=== PATIENT | male | born 1935 | race Caucasian/White ===

== ENCOUNTER → 2016-11-19 | Outpatient (CLI) | payer OTHER ==
[2016-11-19 14:54] LABS: ALT/SGPT 33 U/L (12-78); AST/SGOT 17 U/L (15-37); BLOOD UREA NITROGEN 19 mg/dl (7-18); BUN/CREATININE RATIO 11.7 (10-20); CALCIUM 8.6 mg/dl (8.5-10.1); CARBON DIOXIDE 29 mmol/L (21-32); CHLORIDE 105 mmol/L (98-107); CHOLESTEROL 165 mg/dl (0-200); GLUCOSE 102 mg/dl (70-99); HDL CHOLESTEROL 41 mg/dl; LDL CHOLESTEROL CALCULATED 90 mg/dl; POTASSIUM 3.9 mmol/L (3.5-5.1); SODIUM 142 mmol/L (136-145); TRIGLYCERIDES 172 mg/dl (0-150); VERY LOW DENSITY LIPOPROT CALC 34 mg/dl
== END | disposition home or self-care (01) ==
LOC: C.LABMFLN 09:47
PROVIDERS: ATTEND Family Medicine
DX: I10 Essential (primary) hypertension (principal); E78.5 Hyperlipidemia, unspecified; N28.9 Disorder of kidney and ureter, unspecified

== ENCOUNTER → 2017-05-26 | Outpatient (CLI) | payer OTHER ==
[2017-05-26 14:01] LABS: ALT/SGPT 30 U/L (12-78); AST/SGOT 17 U/L (15-37); BLOOD UREA NITROGEN 26 mg/dl (7-18); BUN/CREATININE RATIO 16.5 (10-20); CALCIUM 8.7 mg/dl (8.5-10.1); CARBON DIOXIDE 29 mmol/L (21-32); CHLORIDE 103 mmol/L (98-107); CHOLESTEROL 158 mg/dl (0-200); CREATININE 1.55 mg/dl (0.60-1.40); GLUCOSE 113 mg/dl (70-99); POTASSIUM 3.7 mmol/L (3.5-5.1); SODIUM 140 mmol/L (136-145)
[2017-05-26 14:05] LABS: CHOLESTEROL/HDL RATIO 3.8; HDL CHOLESTEROL 42 mg/dl; LDL CHOLESTEROL CALCULATED 75 mg/dl; TRIGLYCERIDES 203 mg/dl (0-150); VERY LOW DENSITY LIPOPROT CALC 41 mg/dl
== END | disposition home or self-care (01) ==
LOC: C.LABMFLN 07:51
PROVIDERS: ATTEND Family Medicine
DX: I10 Essential (primary) hypertension (principal); E78.5 Hyperlipidemia, unspecified

== ENCOUNTER 2022-06-30 04:58 | Observation (INO) ==
[2022-06-30] MEDS ORDERED: SODIUM CHLORIDE 0.9% 500 ML IV ONE (05:45)
[2022-06-30 06:43] LABS: Basophils # (auto) 0.04 K/uL (0-0.2); Basophils % (auto) 0.5 %; Eosinophils # (auto) 0.17 K/uL (0-0.50); Eosinophils % (auto) 2.1 %; Hematocrit (blood only) 41.2 % (40.1-51.0); Immature Granulocytes # (auto) 0.08 K/uL (0.00-0.02); Lymphocytes # (auto) 0.83 K/uL (1.2-3.4); Lymphocytes % (auto) 10.2 %; Mean Corpuscular Volume 88.4 fL (80.0-100.0); Mean Platelet Volume 9.9 fL (9.4-12.4); Monocytes # (auto) 0.93 K/uL (0.24-0.82); Monocytes % (auto) 11.4 %; Neutrophils % (auto) 74.8 %; Platelet Count 222 K/uL (130-400); RDW Coefficient of Variation 14.7 % (11.5-14.5); RDW Standard Deviation 47.5 fL (36.4-46.3); Red Blood Count 4.66 M/uL (4.63-6.08); White Blood Count 8.15 K/ul (4.8-10.8)
[2022-06-30 06:44] LABS: Alanine Aminotransferase 19 U/L (7-52); Albumin Globulin Ratio 1.6 (0.9-2); Albumin Level 3.8 gm/dl (3.4-5.0); Alkaline Phosphatase 57 U/L (34-104); Anion Gap 7 (3-11); Aspartate Aminotransferase 18 U/L (13-39); BUN Creatinine Ratio 20.1 (10-20); Bilirubin,Total 0.5 mg/dl (0.2-1.0); Blood Urea Nitrogen 33 mg/dl (6-23); Calcium 8.1 mg/dl (8.5-10.1); Carbon Dioxide 27 mmol/L (21-32); Chloride 102 mmol/L (98-107); Est GFR (African American) 42.3 ml/min; Est GFR (Non-African American) 36.5 ml/min; Globulin 2.4 gm/dl (2.5-4.0); Glucose 129 mg/dl (70-99(Fasting)); Potassium 3.6 mmol/L (3.5-5.1); Sodium 136 mmol/L (136-145); Total Protein 6.2 gm/dl (6.0-8.3)
--- NOTE | 2022-06-30 07:09 | Emergency Department Note ---
Impression & Plan Fall, Weakness Admit to the [facility] ED Provider Note NAME: RINKU HTURSTON AGE: 87 SEX: M ARRIVES VIA: Ambulance INFORMANT: Patient and his daughter ED PROVIDER(S): Aminata Morse DO CHIEF COMPLAINT: Fall and confusion PLAN: Disposition: Admit to the [facility] Condition: Stable MEDICAL DECISION MAKING: This is an 87-year-old male patient who presents emergency department after suffering a fall tonight and having increased confusion. Patient had a pacemaker placed 2 days ago and has had increased falls and weakness since that time. Patient appears slightly dehydrated on physical exam. Laboratory studies show a creatinine of 1.6 with recent creatinines of 1.4. Patient was bolused with IV normal saline solution and was encouraged to drink clear liquids so that he could give a urine specimen. Other laboratory studies were unremarkable. Family describes intermittent episodes of confusion. Patient did not injure himself during any of the recent falls. Though daughter does describe increased urinary frequency. Urinalysis is pending. I discussed the case with the [facility] Hospitalist and they will evaluate for further management. Triage Nursing notes reviewed and agree with them. Additional history obtained from the daughters who are at the bedside Prior medical records reviewed Vital Signs: reviewed and unremarkable Differential diagnosis: Medication side effects, dehydration, cardiac dysrhythmia, pacemaker malfunction, UTI ER treatment provided: IV normal saline bolus Diagnostics interpreted by me: ECG: Normal sinus rhythm at a rate of 64 with first-degree AV block. There is right bundle branch block. There are T wave inversions in the lateral leads. Cardiac Monitoring: Normal sinus rhythm at a rate of 60 Laboratory studies: See below Imaging studies: As per my interpretation Portable chest x-ray: No acute pulmonary infiltrates or consolidations appreciated CT scan of the head: As per radiology report HPI: 87/M arrives for evaluation of fall. Patient had pacemaker placed [address] Lewis. Patient suffered a fall in the hallway tonight but did not injure himself. Patient seem to be somewhat confused after the fall but did not strike his head. Family found his blood pressure to be 82/39. They do admit that the patient has had a couple falls over the past 3 days and has become increasingly weak. They do describe urinary frequency. PAST MEDICAL HISTORY:See Below PAST SURGICAL HISTORY:See Below FAMILY HISTORY:See Below SOCIAL HISTORY:See Below HOME MEDICATIONS:See list ALLERGIES:None VITALS:See Below PHYSICAL EXAMINATION: HEENT: Head - normocephalic and atraumatic Pupils are equal, round, and reactive to light. Extraocular eye muscles are intact, and sclera are anicteric. Nose - moist nasal mucosa without discharge. Mouth - moist buccal mucosa. Oropharynx is nonerythematous and there is no tonsillar exudate or edema noted. Neck: Supple; no cervical lymphadenopathy Heart: Regular rate and rhythm. There is a normal S1 and S2 with no murmurs, clicks, or gallops appreciated. Lungs: Clear to auscultation bilaterally with no wheezes, rales, or rhonchi. Abdomen: Soft, completely nontender, nondistended, with good bowel sounds. There are no palpable pulsatile masses or hepatosplenomegaly. There is no guarding, rigidity, or rebound noted. Extremities: No evidence of cyanosis, clubbing, or edema. There are easily palp able peripheral pulses. Skin: warm and dry with good turgor and no rashes. ED COURSE: Times/Reassessments: 520: The patient was evaluated in room B 12. Previous medical records were reviewed from previous hospitalizations. A complete history and physical was performed. An order was placed for continuous cardiac monitoring. The patient was in a normal sinus rhythm at a rate of 60. A twelve-lead EKG was obtained as described above. Patient was bolused with IV normal saline solution. Patient had a chest x-ray and went for CT scan of the brain. I discussed the case with the [facility] Hospitalist. Aminata Morse DO Past Med/Surg History Medical History (Updated 07/01/22 @ 14:18 by Aminata Morse DO) Abnormal weight loss Adjustment reaction Amputation of left great toe Carotid stenosis Gout Head trauma Hyperlipidemia Hypertension Hypokalemia Hypotension Mixed conductive and sensorineural hearing loss of right ear with restricted hearing of left ear Neuropathy Onychomycosis Osteomyelitis of great toe of left foot PAD (peripheral artery disease) Peripheral vascular disease Prediabetes Renal insufficiency Right shoulder pain Syncope Surgical History History of cholecystectomy 2019 History of surgery Broken legs repair and head injury - 1948 History of surgery Heel spurs - 10+ years ago. S/P cholecystectomy Status post surgical removal of malignant neoplasm of skin Family History (Updated 06/30/22 @ 14:18 by Sindy Flor DO) Father Hypertension Heart disease Stroke Mother Hypertension Heart disease Other No family history of adverse response to anesthesia No family history of bleeding disorder Social History Smoking Status: Never smoker Second Hand Exposure: No; Hx Alcohol Use: No Hx Substance Use: No Preferred Language: Amharic Communication Ability: Effective Mirror Installer Required: No Beliefs That Will Affect Care: None Current Living Situation: Spouse current occupational status: retired Other Information That Helps Us Care for You: No Feels Safe at Home: Yes Safety Concerns: Feels Safe At This Time caffeine: Yes Seatbelt Use: always Assistive Devices: Cane, Denture - Upper, Denture - Lower, Glasses and Hearing Aid - Bilateral Allergies Allergies Allergy/AdvReac Type Severity Reaction Status Date / Time No Known Drug Allergies Allergy Unknown Verified 06/28/22 09:28 Home Meds Home Medications Medication Instructions Recorded Confirmed aspirin 81 mg tablet 81 mg PO DAILY 12/04/18 06/28/22 acetaminophen 500 mg tablet 1,000 mg PO TID PRN Pain 01/31/22 06/28/22 (Tylenol Extra Strength) Previous Rx's Medication Instructions Recorded triamcinolone acetonide 0.1 % 1 appln topical BID PRN itching 12/04/18 topical cream #80 grams tamsulosin 0.4 mg capsule 0.8 mg PO DAILY #180 caps 06/14/21 mupirocin 2 % topical ointment 1 applic topical BID #15 grams 12/14/21 rosuvastatin 20 mg tablet (Crestor) 20 mg PO DAILY #90 tabs 01/31/22 clopidogrel 75 mg tablet (Plavix) 75 mg PO DAILY #90 tabs 04/25/22 cyanocobalamin (vitamin B-12) 1,000 mcg PO DAILY #30 caps 04/25/22 1,000 mcg capsule sertraline 100 mg tablet 100 mg PO .QHS #90 tabs 05/13/22 hydrochlorothiazide 12.5 mg tablet 12.5 mg PO QAM #90 tabs 05/31/22 potassium chloride 10 mEq 10 meq PO BID #180 tabs 05/31/22 tablet,extended release finasteride 5 mg tablet 5 mg PO DAILY #90 tabs 06/18/22 Results & Data (ED) Vital Signs Vital Signs - 24 hr 06/30/22 05:02 06/30/22 05:02 06/30/22 06:04 Temperature 36.9 C Temperature Source Oral Pulse Rate 64 Pulse Rate from SpO2 Sensor Respiratory Rate 22 Respiratory Effort / Characteristics Non-Labored Non-Labored Respiratory Depth Normal Normal Blood Pressure 127/61 Blood Pressure Mean 83 Pulse Oximetry 95 94 Oxygen Delivery Method Room Air Room Air Sepsis Recent Fever Within 48 Hours No Sepsis New/Unexplained Change in Mental Status No Sepsis Action Taken by Nursing No Action Required 06/30/22 05:04 06/30/22 05:05 06/30/22 05:05 Temperature Temperature Source Pulse Rate 64 66 Pulse Rate from SpO2 Sensor 64 65 Respiratory Rate 26 H 19 Respiratory Effort / Characteristics Respiratory Depth Blood Pressure 127/61 Blood Pressure Mean 83 Pulse Oximetry 94 94 Oxygen Delivery Method Sepsis Recent Fever Within 48 Hours Sepsis New/Unexplained Change in Mental Status Sepsis Action Taken by Nursing 06/30/22 05:30 06/30/22 05:30 06/30/22 06:00 Temperature Temperature Source Pulse Rate 65 64 Pulse Rate from SpO2 Sensor 62 65 Respiratory Rate 24 26 H Respiratory Effort / Characteristics Respiratory Depth Blood Pressure 129/96 Blood Pressure Mean 107 Pulse Oximetry 93 93 Oxygen Delivery Method Sepsis Recent Fever Within 48 Hours Sepsis New/Unexplained Change in Mental Status Sepsis Action Taken by Nursing 06/30/22 06:29 06/30/22 06:29 06/30/22 06:30 Temperature Temperature Source Pulse Rate 65 Pulse Rate from SpO2 Sensor 65 Respiratory Rate 20 Respiratory Effort / Characteristics Respiratory Depth Blood Pressure 136/89 118/72 Blood Pressure Mean 104 87 Pulse Oximetry 95 Oxygen Delivery Method Sepsis Recent Fever Within 48 Hours Sepsis New/Unexplained Change in Mental Status Sepsis Action Taken by Nursing 06/30/22 06:30 Temperature Temperature Source Pulse Rate 65 Pulse Rate from SpO2 Sensor 65 Respiratory Rate 22 Respiratory Effort / Characteristics Respiratory Depth Blood Pressure Blood Pressure Mean Pulse Oximetry 95 Oxygen Delivery Method Sepsis Recent Fever Within 48 Hours Sepsis New/Unexplained Change in Mental Status Sepsis Action Taken by Nursing Laboratory Data Result diagrams: 07/01/22 05:40 07/01/22 05:40 Lab Results 06/30/22 06/30/22 06/30/22 Range/Units 06:06 06:06 06:06 WBC 8.15 (4.8-10.8) K/ul RBC 4.66 (4.63-6.08) M/uL Hgb 14.0 (14.0-18.0) g/dl Hct 41.2 (40.1-51.0) % MCV 88.4 (80.0-100.0) fL MCH 30.0 (25.0-34.0) pg MCHC 34.0 (32.0-36.0) g/dL RDW Std Deviation 47.5 H (36.4-46.3) fL RDW Coeff of Sanjuanita 14.7 H (11.5-14.5) % Plt Count 222 (130-400) K/uL MPV 9.9 (9.4-12.4) fL Immature Gran % (Auto) 1.0 % Neut % (Auto) 74.8 % Lymph % (Auto) 10.2 % Ocean % (Auto) 11.4 % Eos % (Auto) 2.1 % Baso % (Auto) 0.5 % Neut # (Auto) 6.10 (1.4-6.5) K/uL Lymph # (Auto) 0.83 L (1.2-3.4) K/uL Ocean # (Auto) 0.93 H (0.24-0.82) K/uL Eos # (Auto) 0.17 (0-0.50) K/uL Baso # (Auto) 0.04 (0-0.2) K/uL Immature Gran # (Auto) 0.08 H (0.00-0.02) K/uL Sodium 136 (136-145) mmol/L Potassium 3.6 (3.5-5.1) mmol/L Chloride 102 (98-107) mmol/L Carbon Dioxide 27 (21-32) mmol/L Anion Gap 7 (3-11) BUN 33 H (6-23) mg/dl Creatinine 1.64 H (0.6-1.4) mg/dl Est Cr Clr Drug Dosing Not Reportable Est GFR ( Amer) 42.3 ml/min Est GFR (Non-Af Amer) 36.5 ml/min BUN/Creatinine Ratio 20.1 H (10-20) Glucose 129 H (70-99(Fasting)) mg/dl Calcium 8.1 L (8.5-10.1) mg/dl Total Bilirubin 0.5 (0.2-1.0) mg/dl AST 18 (13-39) U/L ALT 19 (7-52) U/L Alkaline Phosphatase 57 (34-104) U/L Total Protein 6.2 (6.0-8.3) gm/dl Albumin 3.8 (3.4-5.0) gm/dl Globulin 2.4 L (2.5-4.0) gm/dl Albumin/Globulin Ratio 1.6 (0.9-2) TSH 2.625 (0.300-4.500) uIu/ml Administered Medications Aspirin (Aspirin 81 Mg Ectab) 81 mg PO [facility] Stop: 07/31/22 08:59 Last Admin: 07/01/22 09:28 Dose: 81 mg Documented By: YAZAN Clopidogrel Bisulfate (Clopidogrel Bisulfate 75 Mg Tab) 75 mg PO [facility] Stop: 07/31/22 08:59 Last Admin: 07/01/22 09:28 Dose: 75 mg Documented By: YAZAN Enoxaparin Sodium (Enoxaparin Inj 40 Mg/0.4 Ml Syr) 40 mg SQ [facility] Stop: 07/31/22 08:59 Last Admin: 07/01/22 09:29 Dose: 40 mg Documented By: YAZAN Finasteride (Finasteride 5 Mg Tab) 5 mg PO [facility] Stop: 07/31/22 08:59 Last Admin: 07/01/22 09:28 Dose: 5 mg Documented By: YAZAN Nystatin (Nystatin Cr 15 Gm Tube) 1 appln EXT BID [facility] Stop: 07/30/22 20:59 Last Admin: 07/01/22 09:28 Dose: 1 appln Documented By: Admin: 06/30/22 21:55 Dose: 1 appln Documented By: RAH Sertraline HCl (Sertraline Hcl 100 Mg Tablet) 100 mg PO [facility] Stop: 07/30/22 20:59 Last Admin: 06/30/22 21:54 Dose: 100 mg Documented By: RAH Tamsulosin HCl (Tamsulosin Hcl 0.4 Mg Cap) 0.8 mg PO [facility] Stop: 07/30/22 13:16 Last Admin: 06/30/22 21:54 Dose: 0.8 mg Documented By: RAH Discontinued Medications Sodium Chloride (Nss) 500 mls @ 999 mls/hr IV .Q31M ONE Stop: 06/30/22 06:15 Last Infusion: 06/30/22 06:46 Dose: 0 mls/hr Documented By: Admin: 06/30/22 06:03 Dose: 999 mls/hr Documented By: NATANAEL Tamsulosin HCl (Tamsulosin Hcl 0.4 Mg Cap) 0.8 mg PO DAILY [facility] Stop: 07/30/22 13:16 Last Admin: 06/30/22 15:45 Dose: Not Given Documented By: [id number] Discharge Plan Visit Data Chief Complaint: Fall ED Provider: Aminata Morse Discharge Problem: Fall, Weakness Patient Disposition: Admitted As Inpatient Discharge Instructions Interventions: ED Discharge Assessment Last Done: 06/30/22 13:02 : Fall Qualifiers: Encounter type: initial encounter Qualified Code(s): W19.XXXA - Unspecified fall, initial encounter
--- NOTE | 2022-06-30 07:33 | XRay Report ---
XR chest 1V portable CLINICAL HISTORY: weakness COMPARISON STUDY: Chest radiograph June 28, 2022. FINDINGS: Dual lumen subclavian pacemaker is in place. There is no pneumothorax or pleural effusion. No evidence for pulmonary edema. Moderate elevation of the right hemidiaphragm. Mild bibasilar opacit ies favor atelectasis. There is no consolidation to suggest pneumonia. Appearance of the chest is unc hanged. IMPRESSION: No acute cardiopulmonary findings. No change in appearance of the chest. ACT 112: Negative or not required by law. Electronically signed by: Reginaldo Genao M.D. 06/30/2022 7:32 AM
[2022-06-30 08:12] LABS: Appearance Urine Clear (Clear); Bacteria Urine Automated Negative (Negative); Bilirubin Urine Negative (Negative); Blood Urine Negative (Negative); Color Urine Yellow; Glucose Urine UA Negative (Negative); Ketones Urine Negative (Negative); Leukocyte Esterase Urine Trace (Negative); Nitrite Urine Negative (Negative); Protein Urine Negative (Negative); RBC Urine Automated 0-4 /hpf (0-4); Specific Gravity Urine 1.008 (1.000-1.030); Urobilinogen Urine Negative (Negative); pH Urine 5.5 (4.5-7.5)
--- NOTE | 2022-06-30 09:02 | History & Physical Report ---
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 PT and OT for dispo planning ordered CT Head ordered my this provider to rule out head trauma pathologies -> no evidence of hemorrhage or CVA CBC and CMP reviewed; CBC normal and BMP with chronic renal dysfunction at baseline TSH normal Appreciate CM assistance for placement following PT and OT recommendations; family concerned for home safety (lives with who also is forgetful, concerned for ability to take medications, perform ADLs) (2) Parkinsonian features: Plan: 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 Will get patient scheduled with Neurology office for outpatient follow up on discharge (3) Atrioventricular conduction disorder: Plan: History of, with pacemaker placed by Dr. Lewis on 06/28 Telemetry for cardiac monitoring, since arrival to hospital has been in paced rhythm; Telemetry personally reviewed by this provider (4) Head trauma: Plan: Report by daughter that patient hit his nose during one of his falls No evidence of bruising to his head or headache, however CT Head performed to rule out hemorrhage or CVA given patient often does not remember how he fell -> negative. (5) CKD (chronic kidney disease): Plan: History of CKD with baseline creatinine 1.6 Stable and chronic problem, creatinine 1.64 on admission Daily BMP (6) PAD (peripheral artery disease): Plan: History of Continue home aspirin and Plavix Holding antihypertensives until tomorrow as patient was reported to be hypotensive at home prior to arrival. BP 150s systolic at time of documentation Plan Lovenox for DVT ppx FULL CODE for now; patient answered "I don't know" several times when asked code status questions, and daughters have not had this discussion with him before heart healthy diet Med/Surg with Tele given recent pacemaker placement for AV conduction disorder History of Present Illness Chief Complaint: falls, progressive cognitive decline Primary Care Provider: Rick Tucker MD 87 yo M Hx AV conduction disease s/p pacemaker 1 week ago, CKD with baseline creatinine 1.6, peripheral vascular disease with Hx osteomyelitis and partial left hallux removal, HTN, HLD presented to the ER for continued falls and continued worsening cognitive decline. History obtained from patient and patient's two daughters Isaac and Bettye. They report that Samuel lives with his , who has dementia, with Bettye living close by and checking in once daily to make sure they take their medications and have enough groceries. Over the last 3 months or so Samuel has been becoming more forgetful, requiring more help for ADLs as compared to prior. He in the last month has developed a tremor in both of his hands as well, as well as a resting tremor at times in the face. Lastly, over the last 1-2 months he has had more falls. For some time, his daughters thought the falls were due to his severe conduction disease (for which he had pacemaker placed 06/28/22). However, through the weekend, Samuel has continued to have falls without memory of those falls at times, and they have found themselves repeating conversations with him that he has forgotten. They do not think he hit his head, as he does not have any bruising, but they are not sure as they are not there all of the time. He did report "bumping his nose" during a fall two days ago. They are concerned that he may not be safe at home at this time due to debility and falls. He denies chest pain, SOB, nausea, vomiting, dysuria, diarrhea, headache. Daughters do not endorse him having complaints since his procedure. In the ER he had CXR without evidence of pneumonia, CBC and CMP normal save for creatinine 1.6 (chronic), UA without evidence of infection. COVID-19 negative. Allergies Allergy/AdvReac Type Severity Reaction Status Date / Time No Known Drug Allergies Allergy Unknown Verified 06/28/22 09:28 Home Medications Medication Instructions Recorded Confirmed Type aspirin 81 mg tablet 81 mg PO DAILY 12/04/18 06/28/22 History triamcinolone acetonide 0.1 % 1 appln topical BID PRN itching 12/04/18 06/28/22 Rx topical cream #80 grams tamsulosin 0.4 mg capsule 0.8 mg PO DAILY #180 caps 06/14/21 06/28/22 Rx mupirocin 2 % topical ointment 1 applic topical BID #15 grams 12/14/21 06/28/22 Rx acetaminophen 500 mg tablet 1,000 mg PO TID PRN Pain 01/31/22 06/28/22 History (Tylenol Extra Strength) rosuvastatin 20 mg tablet (Crestor) 20 mg PO DAILY #90 tabs 01/31/22 06/28/22 Rx clopidogrel 75 mg tablet (Plavix) 75 mg PO DAILY #90 tabs 04/25/22 06/28/22 Rx cyanocobalamin (vitamin B-12) 1,000 mcg PO DAILY #30 caps 04/25/22 06/28/22 Rx 1,000 mcg capsule sertraline 100 mg tablet 100 mg PO .QHS #90 tabs 05/13/22 06/28/22 Rx hydrochlorothiazide 12.5 mg tablet 12.5 mg PO QAM #90 tabs 05/31/22 06/28/22 Rx potassium chloride 10 mEq 10 meq PO BID #180 tabs 05/31/22 06/28/22 Rx tablet,extended release finasteride 5 mg tablet 5 mg PO DAILY #90 tabs 06/18/22 06/28/22 Rx Past Med/Surg History Medical History (Updated 06/30/22 @ 14:23 by Sindy Flor DO) Abnormal weight loss Adjustment reaction Amputation of left great toe Carotid stenosis Gout Head trauma Hyperlipidemia Hypertension Hypokalemia Hypotension Mixed conductive and sensorineural hearing loss of right ear with restricted hearing of left ear Neuropathy Onychomycosis Osteomyelitis of great toe of left foot PAD (peripheral artery disease) Peripheral vascular disease Prediabetes Renal insufficiency Right shoulder pain Syncope Surgical History History of cholecystectomy 2019 History of surgery Broken legs repair and head injury - 1948 History of surgery Heel spurs - 10+ years ago. S/P cholecystectomy Status post surgical removal of malignant neoplasm of skin Family History (Updated 06/30/22 @ 14:18 by Sindy Flor DO) Father Hypertension Heart disease Stroke Mother Hypertension Heart disease Other No family history of adverse response to anesthesia No family history of bleeding disorder Social History Smoking Status: Never smoker Second Hand Exposure: No; Hx Alcohol Use: No Hx Substance Use: No Preferred Language: Polish Communication Ability: Effective Electric Blanket Packer Required: No Beliefs That Will Affect Care: None Current Living Situation: Spouse current occupational status: retired Other Information That Helps Us Care for You: No Feels Safe at Home: Yes Safety Concerns: Feels Safe At This Time caffeine: Yes Seatbelt Use: always Assistive Devices: Cane, Denture - Upper, Denture - Lower, Glasses and Hearing Aid - Bilateral Review of Systems Review of Systems: All systems reviewed & are unremarkable except as noted in HPI & below Constitutional: no fever, no chills and no malaise Eyes: no blind spots and no diplopia Ear, Nose, Mouth, Throat: no nasal congestion and no epistaxis Respiratory: no cough and no dyspnea Cardiovascular: no chest pain, no palpitations and no edema Gastrointestinal: no abdominal pain, no constipation and no diarrhea/loose stools Genitourinary: no dysuria or no hematuria Musculoskeletal: no back pain and no neck pain Integumentary: no rash and no skin ulcer Neurologic: + tremor(s); no localized weakness and no loss of sensation Psychiatric: + confusion; no behavioral changes Endocrine: no fatigue, no polydipsia and no polyuria Hematologic / Lymphatic: no easy bleeding and no easy bruising Physical Exam Constitutional: well developed and well nourished; no acute distress Eyes: PERRL, conjunctivae normal, anicteric sclerae ENMT: external ear and nose normal, oropharynx normal Neck: trachea midline, no thyromegaly Respiratory: normal respiratory effort, lungs clear to auscultation Cardiovascular: RRR, no murmur, no edema Gastrointestinal (Abdomen): normal bowel sounds, soft, nontender, no hepatosplenomegaly Musculoskeletal: no cyanosis or clubbing, extremities motor strength 5/5 Skin: no rashes, warm and dry Neurologic: AAOx3, normal speech. Hard of hearing. Intermittent confusion with redirectability. PERRLA, EOMI, no nystagmus. Normal visual acuity bilaterally. Bilateral UE, LE, and face without sensory or motor deficits. No pronator drift. Resting pill-roll tremor in bilateral lands R>L. Psychiatric: A+Ox3, euthymic affect Results & Data Results & Data ([facility]) Vital Signs (Past 12 Hours) Vital Signs Temp Pulse Pulse Resp BP Pulse Ox O2 Del Method 06/30/22 07:56 78 18 96 Room Air 06/30/22 06:30 65 22 95 06/30/22 06:30 118/72 06/30/22 06:29 65 20 95 06/30/22 06:29 136/89 06/30/22 06:00 64 26 H 93 06/30/22 05:30 65 24 93 06/30/22 05:30 129/96 06/30/22 05:05 66 19 94 06/30/22 05:05 127/61 06/30/22 05:04 64 26 H 94 06/30/22 06:04 94 Room Air 06/30/22 05:02 36.9 C 64 22 127/61 95 Room Air PG Care Time/CCT Total # of Minutes Spent Total Time Spent with Patient: Total time spent is greater than 50% in coordination of care (as documented) at patient's floor/unit and/or counseling patient: Coding Level of Care Code 47781 Initial Inpt Care Lvl 3 Medical Decision Making High Complexity Diagnoses Falls W19.XXXA Parkinsonian features R25.9 Atrioventricular conduction disorder I44.30 Head trauma S09.90XA CKD (chronic kidney disease) N18.9 PAD (peripheral artery disease) I73.9
--- NOTE | 2022-06-30 09:39 | CT Scan Report ---
HEAD CT NONCONTRAST CT DOSE: 1074.96 mGy.cm HISTORY: fall, confusion TECHNIQUE: Multiaxial CT images of the head were performed without the use of intravenous contrast. A utomated exposure control was utilized for this study. A dose lowering technique was utilized adheri ng to the principles of ALARA. Comparison: None. Findings: The paranasal sinuses and mastoid air cells are clear. The calvarium and skull base are int act. There is no mass, hematoma, midline shift, acute infarct. White matter hypodensity is nonspecifi c but suggestive of microvascular ischemic change. The ventricles and sulci demonstrate mild age-rela amilcar involutional changes. Motion artifact. Impression: Motion artifact. No definite acute intracranial abnormality. ACT 112: Negative or not required by law. Electronically signed by: Lalo Valdez M.D. 06/30/2022 9:37 AM
[2022-06-30] MEDS ORDERED: ACETAMINOPHEN 325 MG TAB PO PRN (13:17)
[2022-06-30] MEDS ORDERED: POLYETHYLENE (MIRALAX) 17 GM PACK PO PRN (13:17)
[2022-06-30] MEDS ORDERED: TAMSULOSIN HCL 0.4 MG CAP PO SCH (13:17)
[2022-06-30] MEDS: TAMSULOSIN HCL 0.4 MG CAP PO SCH (21:54)
[2022-06-30] MEDS: SERTRALINE HCL 100 MG TABLET PO SCH (21:54)
[2022-06-30] MEDS: NYSTATIN CR 15 GM TUBE EXT SCH (21:55)
[2022-07-01 06:21] LABS: Basophils # (auto) 0.03 K/uL (0-0.2); Basophils % (auto) 0.4 %; Eosinophils # (auto) 0.33 K/uL (0-0.50); Eosinophils % (auto) 4.4 %; Hematocrit (blood only) 38.9 % (40.1-51.0); Hemoglobin 13.6 g/dl (14.0-18.0); Immature Granulocytes # (auto) 0.03 K/uL (0.00-0.02); Immature Granulocytes % (auto) 0.4 %; Lymphocytes # (auto) 1.07 K/uL (1.2-3.4); Lymphocytes % (auto) 14.2 %; Mean Corpuscular Hemoglobin 30.6 pg (25.0-34.0); Mean Corpuscular Volume 87.4 fL (80.0-100.0); Mean Platelet Volume 9.9 fL (9.4-12.4); Neutrophils # (auto) 5.17 K/uL (1.4-6.5); Neutrophils % (auto) 68.6 %; Platelet Count 207 K/uL (130-400); RDW Coefficient of Variation 14.7 % (11.5-14.5); RDW Standard Deviation 46.5 fL (36.4-46.3); Red Blood Count 4.45 M/uL (4.63-6.08); White Blood Count 7.53 K/ul (4.8-10.8)
[2022-07-01 07:09] LABS: BUN Creatinine Ratio 20.5 (10-20); Calcium 7.9 mg/dl (8.5-10.1); Creatinine Clr Calc Pharmacy 38.1 ml/min; Est GFR (African American) 57.7 ml/min; Est GFR (Non-African American) 49.8 ml/min; Potassium 3.8 mmol/L (3.5-5.1)
--- NOTE | 2022-07-01 07:52 | Hospitalist Progress Note ---
Date of Service July 01, 2022 Assessment & Plan (1) Falls: Plan: Falls multifactorial given orthostatic hypotension (standing BP 60s systolic, though asymptomatic, with PT today), Parkinson-like syndrome with shuffling gait, recent foot surgery. CT Head ordered by this provider to rule out head trauma pathologies -> no evidence of hemorrhage or CVA CBC and CMP reviewed; CBC normal and BMP with chronic renal dysfunction at baseline TSH normal Will give gentle bolus/reassess fluids starting with 500cc now and another 500cc in a few hours with assessment of BP Appreciate CM assistance for placement following PT and OT recommendation of rehab on discharge; family concerned for home safety (lives with who also is forgetful, concerned for ability to take medications, perform ADLs) Rhythm has been paced and no issues on telemetry so do not feel these falls are due to AV conduction issues in the past. 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 Will get patient scheduled with Neurology office for outpatient follow up on discharge (3) Atrioventricular conduction disorder: Plan: History of, with pacemaker placed by Dr. Lewis on 06/28 Telemetry for cardiac monitoring, since arrival to hospital has been in paced rhythm; Telemetry personally reviewed by me, paced rhythm in 50-70s Due for dressing evaluation by Cardiology office provider tomorrow, Dr. Lewis aware (4) Head trauma: Plan: Report by daughter that patient hit his nose during one of his falls No evidence of bruising to his head or headache, however CT Head performed to rule out hemorrhage or CVA given patient often does not remember how he fell -> negative. (5) CKD (chronic kidney disease): Plan: History of CKD with baseline creatinine 1.6 Stable and chronic problem, creatinine 1.2 now Daily BMP (6) PAD (peripheral artery disease): Plan: History of Continue home aspirin and Plavix Holding antihypertensives given hypotension not only prior to arrival to ER but orthostatic hypotension with PT today. Plan Lovenox for DVT ppx FULL CODE for now; patient answered "I don't know" several times when asked code status questions, and daughters have not had this discussion with him before heart healthy diet Tele given recent pacemaker placement for AV conduction disorder, orthostatic hypotension Admission and Anticipated Discharge Date Admission Date: June 30, 2022 Subjective No overnight events. Patient knows he is in the hospital but not sure why. Knows his name and his daughter's names. Spoke with daughters who report his behavior (forgetfulness, needing things repeating, etc) is similar to last several weeks Review of Systems Review of Systems: All systems reviewed & are unremarkable except as noted in Subjective Physical Exam Constitutional: well developed and well nourished; no acute distress Respiratory: normal respiratory effort, lungs clear to auscultation Cardiovascular: RRR, no murmur, no edema Gastrointestinal (Abdomen): normal bowel sounds, soft, nontender, no hepatosplenomegaly Skin: no rashes, warm and dry Neurologic: AAOx2, normal speech. Hard of hearing. Intermittent confusion with redirectability. PERRLA, EOMI, no nystagmus. Bilateral UE, LE, and face without sensory or motor deficits. No pronator drift. Resting pill-roll tremor in bilateral lands R>L. Does have shaking tremor of head at times. Psychiatric: A+Ox3, euthymic affect Results & Data Results & Data ([facility]) Vital Signs (Past 12 Hours) Vital Signs Temp Pulse Pulse Resp BP Pulse Ox O2 Del Method 07/01/22 07:13 36.3 C L 61 16 165/75 H 95 Room Air 07/01/22 00:37 36.8 C 61 16 157/88 H 96 Room Air 06/30/22 23:05 62 PG Care Time/CCT Total # of Minutes Spent Total Time Spent with Patient: Total time spent in care of this patient including chart review, orders and documentation, discussion of patient's assessment and plan with patient, patient's daughter Bettye alvarado Isaac, nursing staff, and Dr. Lewis (for eval of pacemaker site given recent surgery): 45 minutes Coding Level of Care Code 66242 Subseq Hosp Care Lvl 3 Diagnoses Falls W19.XXXA Parkinsonian features R25.9 Atrioventricular conduction disorder I44.30 Head trauma S09.90XA CKD (chronic kidney disease) N18.9 PAD (peripheral artery disease) I73.9
[2022-07-01] MEDS: CLOPIDOGREL BISULFATE 75 MG TAB PO SCH (09:28)
[2022-07-01] MEDS: NYSTATIN CR 15 GM TUBE EXT SCH ×2 (09:28→20:31)
[2022-07-01] MEDS: ASPIRIN 81 MG ECTAB PO SCH (09:28)
[2022-07-01] MEDS: FINASTERIDE 5 MG TAB PO SCH (09:28)
[2022-07-01] MEDS: ENOXAPARIN INJ 40 MG/0.4 ML SYR SQ SCH (09:29)
--- NOTE | 2022-07-01 18:43 | Electrocardiogram Report ---
Test Reason : Blood Pressure : / mmHG Vent. Rate : 064 BPM Atrial Rate : 064 BPM P-R Int : 268 ms QRS Dur : 132 ms QT Int : 416 ms P-R-T Axes : 009 022 014 degrees QTc Int : 429 ms Sinus rhythm with 1st degree A-V block Right bundle branch block Inferior infarct , age undetermined T wave abnormality, consider lateral ischemia Abnormal ECG No previous ECGs available Confirmed by Santiago Lewis ([id number]) on 07/01/2022 6:43:43 PM Referred By: REFERRED SELF Confirmed By:Ted Lewis
[2022-07-01] MEDS: SERTRALINE HCL 100 MG TABLET PO SCH (20:30)
[2022-07-01] MEDS: TAMSULOSIN HCL 0.4 MG CAP PO SCH (20:31)
[2022-07-01] MEDS ORDERED: SODIUM CHLORIDE 0.9% 1000ML 500 ML IV ONE (23:04)
[2022-07-02 06:00] LABS: Hematocrit (blood only) 37.5 % (40.1-51.0); Hemoglobin 12.8 g/dl (14.0-18.0); Mean Corpuscular Hemoglobin 29.7 pg (25.0-34.0); Mean Corpuscular Hgb Conc 34.1 g/dL (32.0-36.0); Mean Platelet Volume 9.4 fL (9.4-12.4); Platelet Count 208 K/uL (130-400); RDW Coefficient of Variation 14.8 % (11.5-14.5); RDW Standard Deviation 47.6 fL (36.4-46.3); Red Blood Count 4.31 M/uL (4.63-6.08); White Blood Count 9.91 K/ul (4.8-10.8)
[2022-07-02 06:22] LABS: BUN Creatinine Ratio 23.8 (10-20); Calcium 7.7 mg/dl (8.5-10.1); Creatinine Clr Calc Pharmacy 37.3 ml/min; Est GFR (African American) 56.1 ml/min; Est GFR (Non-African American) 48.4 ml/min; Potassium 4.3 mmol/L (3.5-5.1)
--- NOTE | 2022-07-02 08:11 | Hospitalist Progress Note ---
Date of Service July 02, 2022 Assessment & Plan (1) Falls: Plan: Falls multifactorial given orthostatic hypotension (standing BP 60s systolic, though asymptomatic, with PT on 07/01), shuffling gait, recent foot surgery CT Head ordered by this provider to rule out head trauma pathologies -> no evidence of hemorrhage or CVA CBC and BMP reviewed; CBC with Hgb 12.8 (came in higher but was dehydrated and has received IV fluids since) and BMP with chronic renal dysfunction at baseline (creatinine improved) TSH normal. Lyme IgG/IgM negative. B12/folate levels normal. Neurology consulted for tomorrow morning and appreciate recommendations. Rhythm has been paced and no issues on telemetry so do not feel these falls are due to AV conduction issues in the past Appreciate CM assistance for placement following PT and OT recommendation of rehab on discharge; family concerned for home safety (lives with who also is forgetful, concerned for ability to take medications, perform ADLs) (2) Parkinsonian features: Plan: Noted on admission to have complaints of shuffling gait and falls, progressive cognitive decline, and pill-roll tremor CT Head to rule out head trauma pathologies ordered -> no evidence of hemorrhage or CVA, no other pathologies Unable to perform MRI brain due to recent pacemaker placement Metabolic evaluation as above Neuro consult as above given odd presentation of acute/subacute tremors and gait changes, case discussed over the phone with Dr. De León. (3) Atrioventricular conduction disorder: Plan: History of, with pacemaker placed by Dr. Lewis on 06/28 Telemetry for cardiac monitoring, since arrival to hospital has been in paced rhythm; Telemetry personally reviewed by me, paced rhythm in 50-70s (4) Head trauma: Plan: Report by daughter that patient hit his nose during one of his falls a few days before admission No evidence of bruising to his head or headache, however CT Head performed to rule out hemorrhage or CVA given patient often does not remember how he fell -> negative. (5) CKD (chronic kidney disease): Plan: History of CKD with baseline creatinine 1.6 Stable and chronic problem, creatinine 1.3 now Daily BMP Did give some gentle fluids for appearance of volume contraction on exam, and encouraged family and nursing to assist patient with having sips of water (6) PAD (peripheral artery disease): Plan: History of Continue home aspirin and Plavix Holding antihypertensives given hypotension not only prior to arrival to ER but orthostatic hypotension with PT 1/2. (7) Orthostatic hypotension: Plan: Yesterday had hypotension working with PT, standing BP 60s systolic without symptoms. Improved with sitting and rest. Did give 500cc bolus fluid x1 overnight, with another late morning. Repeat orthostatics by nursing staff normal. PT worked with patient today without significant drop in BPs. Plan Lovenox for DVT ppx FULL CODE heart healthy diet Med/Tele given recent pacemaker placement for AV conduction disorder, orthostatic hypotension Admission and Anticipated Discharge Date Admission Date: June 30, 2022 Subjective No overnight events. Took all pills this morning 1 at a time, no swallowing issues. Moments of confusion but in general answers questions correctly, is forgetful about why he is in the hospital. Normal vitals overnight. Review of Systems Review of Systems: All systems reviewed & are unremarkable except as noted in Subjective Physical Exam Constitutional: well developed and well nourished; no acute distress Respiratory: normal respiratory effort, lungs clear to auscultation Cardiovascular: RRR, no murmur, no edema Gastrointestinal (Abdomen): normal bowel sounds, soft, nontender, no hepatosplenomegaly Skin: no rashes, warm and dry Neurologic: AAOx2, normal speech. Hard of hearing. Intermittent confusion with redirectability. PERRLA, EOMI, no nystagmus. Bilateral UE, LE, and face without sensory or motor deficits. No pronator drift. Resting pill-roll tremor in bilateral lands R>L. Does have intermittent shaking tremor/facial tics Psychiatric: A+Ox3, euthymic affect Results & Data Results & Data ([facility]) Vital Signs (Past 12 Hours) Vital Signs Temp Pulse Pulse Resp BP Pulse Ox O2 Del Method 07/02/22 07:37 37.1 C 71 20 142/71 H 94 Room Air 07/02/22 03:59 36.3 C L 66 16 147/70 H 93 Room Air 07/02/22 00:27 66 07/01/22 23:52 36.6 C 65 18 155/72 H 93 Room Air PG Care Time/CCT Total # of Minutes Spent Total Time Spent with Patient: Total time spent in patient care including chart review, orders/documentation, discussing with literacy consultant services, and reviewing plan with patient/family: 60 minutes Coding Level of Care Code 52066 SUB INP/OBS CARE 3/50MIN Diagnoses Falls W19.XXXA Parkinsonian features R25.9 Atrioventricular conduction disorder I44.30 Head trauma S09.90XA CKD (chronic kidney disease) N18.9 PAD (peripheral artery disease) I73.9 Orthostatic hypotension I95.1
[2022-07-02] MEDS: FINASTERIDE 5 MG TAB PO SCH (08:51)
[2022-07-02] MEDS: ENOXAPARIN INJ 40 MG/0.4 ML SYR SQ SCH (08:51)
[2022-07-02] MEDS: ASPIRIN 81 MG ECTAB PO SCH (08:51)
[2022-07-02] MEDS: CLOPIDOGREL BISULFATE 75 MG TAB PO SCH (08:51)
[2022-07-02] MEDS: NYSTATIN CR 15 GM TUBE EXT SCH ×2 (08:53→20:28)
[2022-07-02] MEDS ORDERED: SODIUM CHLORIDE 0.9% 1000ML 500 ML IV ONE ×2 (09:00→15:46)
[2022-07-02] MEDS: TAMSULOSIN HCL 0.4 MG CAP PO SCH (20:28)
[2022-07-02] MEDS: SERTRALINE HCL 100 MG TABLET PO SCH (20:28)
[2022-07-02 21:56] LABS: Lyme Ab IgG w/WB Rflx Negative (Negative)
[2022-07-02 21:57] LABS: Lyme Ab IgM w/WB Rflx Negative (Negative)
--- NOTE | 2022-07-03 07:57 | Neurology Consultation ---
Date of Consultation July 03, 2022 Assessment & Plan (1) Tremor: (2) Gait disturbance: (3) Dementia: Plan this patient has a progressive problem with gait and memory over the last several months. I suspect an underlying dementia. I cannot exclude a new stroke but there are no focal signs on examination currently. CT scan of the head reveals some old small vessel ischemic disease and atrophy which would be consistent for his advanced age. The patient has an essential tremor mostly with action. I do not see any resting tremor today. I did not see a head tremor today but a head tremor would be more consistent with essential tremor than Parkinson's. He does not have c ogwheel rigidity or an obvious bradykinesia. His gait was short and choppy but not necessarily parkinsonian. Recommendations: 1. Unfortunately, we cannot get an MRI of the brain due to his pacemaker. 2. physical and occupational therapy. 3. I see no need for additional neurologic testing or treatment at this time but would like to see him as outpatient ( follow-up with PA in 2 3 weeks ). 4. Please contact me if there is any additional issues. Overall, I spent a total of 90 minutes with this case including review of records, review of CT films, direct evaluation the patient at bedside, and discussion of the case with the patient at bedside, RN at bedside, and Dr. Palomo including differential diagnosis and treatment options. History of Present Illness Reason for Consultation: Patient is an 87-year-old, who I was asked to see the request of Dr. Palomo, for neurologic consultation regarding parkinsonism, tremor, and confusion. Requesting Physician: Dr. Palomo Attending Physician: Sindy Flor, History of Present Illness this patient has a history of peripheral vascular disease and chronic kidney disease, hypertension, and dyslipidemia. He was getting some syncopal and unresponsive episodes in the fall of 2021. He saw cardiology, and was diagnosed with 1st degree AV block. He received a pacemaker, placed June 28, 2022. medications received were subcutaneous bupivacaine, IV cefazolin, subcutaneous lidocaine and no other medication. He was put on no new medication as an outpatient as far as I could ascertain. He was on 81 mg aspirin and 75 mg clopidogrel daily, as well as resume his statin 20 mg a day and sertraline 100 mg a day. Over the last few months patient has been getting a little more forgetful and requiring more HDL. He was developing a tremor in both hands and his face. Following the pacemaker procedure he had an increase in confusion and balance issues. There was a blood pressure reading by the family of 82/39. He arrived to the emergency room June 30 at 5:02 a.m., with a temperature 36.9, pulse 64 regular, respiratory rate 20, blood pressure 127/66, and O2 saturation 95%. He was found to be dehydrated with elevated BUN and creatinine with normal CBC and Chem profile otherwise. Urinalysis and TSH were unremarkable. A CT scan of the head showed some mild generalized atrophy and microvascular ischemic disease. I reviewed these films. In the hospital he has had some intermittent confusion. He was noted to have a pill rolling tremor and action tremor with the head. He was having shuffling type gait. Allergies Allergy/AdvReac Type Severity Reaction Status Date / Time No Known Drug Allergies Allergy Unknown Verified 06/28/22 09:28 Home Medications Medication Instructions Recorded Confirmed Type aspirin 81 mg tablet 81 mg PO DAILY 12/04/18 06/28/22 History triamcinolone acetonide 0.1 % 1 appln topical BID PRN itching 12/04/18 06/28/22 Rx topical cream #80 grams tamsulosin 0.4 mg capsule 0.8 mg PO DAILY #180 caps 06/14/21 06/28/22 Rx mupirocin 2 % topical ointment 1 applic topical BID #15 grams 12/14/21 06/28/22 Rx acetaminophen 500 mg tablet 1,000 mg PO TID PRN Pain 01/31/22 06/28/22 History (Tylenol Extra Strength) rosuvastatin 20 mg tablet (Crestor) 20 mg PO DAILY #90 tabs 01/31/22 06/28/22 Rx clopidogrel 75 mg tablet (Plavix) 75 mg PO DAILY #90 tabs 04/25/22 06/28/22 Rx cyanocobalamin (vitamin B-12) 1,000 mcg PO DAILY #30 caps 04/25/22 06/28/22 Rx 1,000 mcg capsule sertraline 100 mg tablet 100 mg PO .QHS #90 tabs 05/13/22 06/28/22 Rx hydrochlorothiazide 12.5 mg tablet 12.5 mg PO QAM #90 tabs 05/31/22 06/28/22 Rx potassium chloride 10 mEq 10 meq PO BID #180 tabs 05/31/22 06/28/22 Rx tablet,extended release finasteride 5 mg tablet 5 mg PO DAILY #90 tabs 06/18/22 06/28/22 Rx Patient History Medical History Abnormal weight loss Adjustment reaction Amputation of left great toe Carotid stenosis Gout Head trauma Hyperlipidemia Hypertension Hypokalemia Hypotension Mixed conductive and sensorineural hearing loss of right ear with restricted hearing of left ear Neuropathy Onychomycosis Osteomyelitis of great toe of left foot PAD (peripheral artery disease) Peripheral vascular disease Prediabetes Renal insufficiency Right shoulder pain Syncope Surgical History History of cholecystectomy 2019 History of surgery Broken legs repair and head injury - 1948 History of surgery Heel spurs - 10+ years ago. S/P cholecystectomy Status post surgical removal of malignant neoplasm of skin Family History Father Hypertension Heart disease Stroke Mother Hypertension Heart disease Other No family history of adverse response to anesthesia No family history of bleeding disorder Social History Smoking Status: Never smoker Second Hand Exposure: No; Hx Alcohol Use: No Hx Substance Use: No Preferred Language: German Communication Ability: Effective Shed Boss Required: No Beliefs That Will Affect Care: None Current Living Situation: Spouse current occupational status: retired Feels Safe at Home: Yes caffeine: Yes Seatbelt Use: always Assistive Devices: Cane and Walker Review of Systems Constitutional: no fever, no fatigue and no weakness Eyes: no diplopia, no eye pain and no worsening vision Ear, Nose, Mouth, Throat: no ear pain, no tinnitus, no hearing loss, no dizziness, no snoring, no hoarseness and no dysphagia Respiratory: no cough and no dyspnea Cardiovascular: no chest pain, no palpitations and no lightheadedness Gastrointestinal: no abdominal pain, no nausea and no vomiting Musculoskeletal: no back pain, no neck pain, no radicular pain, no joint pain and no myalgia Integumentary: no rash and no lesions Neurologic: + memory loss; no gait abnormality, no localized weakness, no generalized weakness, no tingling, no numbness, no tremor(s), no abnormal movements, no headache(s), no abnormal speech and no confusion Psychiatric: no depression, no irritability, no anxiety, no difficulty concentrating, no confusion and no hallucinations Endocrine: no fatigue and no flushing Hematologic / Lymphatic: no easy bleeding and no easy bruising Allergy / Immunological: no urticaria and no problem reported Exam (Neuro) Physical Exam: The patient is left-handed. The patient is awake, alert, and attentive. Speech is normal without any aphasia or dysarthria. The patient can name objects, repeat phrases, and has normal spontaneous speech. The memory is positive for name, age, where he lives, the fact that sees in the hospital in [place], and the fact that he had a recent procedure. 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 He does not have a good memory for recent and past events. Pupils are 3 mm bilaterally and reactive to light. Extraocular eye muscles are intact without nystagmus. Visual acuity and visual hearn seem normal grossly to confrontation. There are no deficits to sensation in the face in all 3 distributions of the fifth cranial nerve bilaterally. Corneal reflexes are positive bilaterally. Facial strength and symmetry was normal bilaterally. He is very hard of hearing bilaterally. Palate moves well without asymmetry. There is normal sternocleidomastoid and trapezius (shoulder shrug) strength bilaterally. Tongue is midline with good strength bilaterally. Neck has a full range of motion without discomfort. There are no cervical bruits bilaterally. There are no cranial or ocular bruits. Heart is without murmur. There is a regular rhythm and rate. Cervical, thoracic, and lumbar spine are nontender to palpation. Stance sitting up in bed and with feet tangled was normal. Standing up was difficult and needed the assistance of 1. Gait was tenuous and he tended to be very cautious taking short steps. With outstretched arms there is no drift. There are no resting tremors noted this morning. The patient does have a mild posture and eyau-yv-kkexplkw action tremor bilaterally. I did not note any head tremor or voice tremor. There is no ataxia with finger to nose testing. There is good facility in the hands. No other abnormal involuntary movements are noted. Motor strength is 5/5 diffusely in the arms bilaterally including deltoids, biceps, triceps, brachioradialis, wrist flexors and extensors, superior court clerk, and intrinsic hand muscles. Motor strength is 5/5 diffusely in the legs bilaterally including hip flexors, quadriceps, hamstrings, gastrocnemius, tibialis anterior, tibialis posterior, and Peroneii muscles. Toe extensors are normal and there is good bulk in the extensor digitorum brevis muscles bilaterally. The limbs have good tone without rigidity or spasticity (I note no cogwheel rigidity ). There is no atrophy noted in the muscles. Muscle bulk is normal, there is no tenderness to palpation, no myotonia to percussion, and no fasciculations seen. Sensory examination is intact to touch and pin throughout all 4 limbs diffusely , although I suspect some decreased sensation in the feet bilaterally.. Reflexes are 1/4 in the biceps, triceps, brachioradialis, and quadriceps tendons bilaterally. Achilles tendon reflexes are absent bilaterally. There is no clonus bilaterally. Toes are downgoing with plantar stimulation bilaterally. Peripheral pulses are present and of normal quality distally in all 4 limbs. There is no peripheral edema noted in the limbs. Results & Data ([facility]) Vital Signs (Past 12 Hours) Vital Signs Temp Pulse Pulse Resp BP Pulse Ox O2 Del Method 07/03/22 07:14 60 07/03/22 02:42 36.9 C 61 16 148/79 H 95 Room Air 07/03/22 00:17 Room Air 07/02/22 23:43 66 07/02/22 22:41 36.8 C 62 16 151/68 H 94 Room Air PG Care Time/CCT Total # of Minutes Spent Total Time Spent with Patient: Total time spent is greater than 50% in coordination of care (as documented) at patient's floor/unit and/or counseling patient: Coding Level of Care Code 62926 INT INP/OBS CARE 3/75MIN Diagnoses Tremor R25.1 Gait disturbance R26.9 Dementia F03.90
--- NOTE | 2022-07-03 08:07 | Hospitalist Progress Note ---
Date of Service July 03, 2022 Assessment & Plan (1) Falls: Plan: Falls multifactorial given orthostatic hypotension (standing BP 60s systolic, though asymptomatic, with PT on 07/01), shuffling gait, recent foot surgery CT Head ordered by this provider to rule out head trauma pathologies -> no evidence of hemorrhage or CVA CBC and BMP reviewed; CBC with Hgb improved today to 13.5 (came in higher but was dehydrated and has received IV fluids since) and BMP with chronic renal dysfunction at baseline (see CKD below) TSH normal. Lyme IgG/IgM negative. B12/folate levels normal. Personally discussed case with Neurology today after consultation completed: most suspicious of underlying dementia, gait choppy but not necessarily Parkinsonian, did have note of mild essential tremor. Follow up Neuro clinic 2-3 weeks. Rhythm has been paced and no issues on telemetry so do not feel these falls are due to AV conduction issues in the past. Appreciate CM assistance for placement following PT and OT recommendation of rehab on discharge. Family amenable to rehab. (2) Parkinsonian features: Plan: Noted on admission to have complaints of choppy gait and falls, progressive cognitive decline, and hand/head tremor/jerks CT Head to rule out head trauma pathologies ordered -> no evidence of hemorrhage or CVA, no other pathologies Unable to perform MRI brain due to recent pacemaker placement Metabolic evaluation as above Neuro consult as above given subacute/acute progression of tremor, gait disturbance, cognitive decline. (3) Atrioventricular conduction disorder: Plan: History of, with pacemaker placed by Dr. Lewis on 06/28 (4) Head trauma: Plan: Report by daughter that patient hit his nose during one of his falls a few days before admission No evidence of bruising to his head or headache, however CT Head performed to rule out hemorrhage or CVA given patient often does not remember how he fell -> negative. (5) CKD (chronic kidney disease): Plan: History of CKD with baseline creatinine 1.6 Stable and chronic problem, creatinine 1.35 now Daily BMP Did give some gentle fluids 1/3 for appearance of volume contraction on exam, and encouraged family and nursing to assist patient with having sips of water (6) PAD (peripheral artery disease): Plan: History of Continue home aspirin and Plavix Holding antihypertensives given hypotension not only prior to arrival to ER but orthostatic hypotension with PT 07/01 and 07/03. (7) Orthostatic hypotension: Plan: Episodes of hypotension working with PT, standing BP better though today than 1/2. Improved with sitting and rest. 500cc bolus and continue to urge PO fluids. Plan Lovenox for DVT ppx FULL CODE heart healthy diet Admission and Anticipated Discharge Date Admission Date: June 30, 2022 Subjective Even more alert this morning. Has no complaints including no headache, no chest pain, SOB. Review of Systems Review of Systems: All systems reviewed & are unremarkable except as noted in Subjective Physical Exam Constitutional: well developed and well nourished; no acute distress Respiratory: normal respiratory effort, lungs clear to auscultation Cardiovascular: RRR, no murmur, no edema Gastrointestinal (Abdomen): normal bowel sounds, soft, nontender, no hepatosplenomegaly Skin: no rashes, warm and dry Neurologic: AAOx2, normal speech. Hard of hearing. Much more alert today. PERRLA, EOMI, no nystagmus. Bilateral UE, LE, and face without sensory or motor deficits. No pronator drift. Did not note tremor/tics of face/hands today Psychiatric: A+Ox3, euthymic affect Results & Data Results & Data ([facility]) Vital Signs (Past 12 Hours) Vital Signs Temp Pulse Pulse Resp BP BP Pulse Ox 07/03/22 07:56 36.6 C 60 18 149/70 H 93 07/03/22 07:53 36.8 C 59 L 18 148/66 H 94 07/03/22 07:14 60 07/03/22 02:42 36.9 C 61 16 148/79 H 95 07/03/22 00:17 07/02/22 23:43 66 07/02/22 22:41 36.8 C 62 16 151/68 H 94 O2 Del Method 07/03/22 07:56 Room Air 07/03/22 07:53 Room Air 07/03/22 07:14 07/03/22 02:42 Room Air 07/03/22 00:17 Room Air 07/02/22 23:43 07/02/22 22:41 Room Air PG Care Time/CCT Total # of Minutes Spent Total Time Spent with Patient: Total time spent is greater than 50% in coordination of care (as documented) at patient's floor/unit and/or counseling patient: Coding Level of Care Code 40969 SUB INP/OBS CARE 3/50MIN Diagnoses Falls W19.XXXA Parkinsonian features R25.9 Atrioventricular conduction disorder I44.30 Head trauma S09.90XA CKD (chronic kidney disease) N18.9 PAD (peripheral artery disease) I73.9 Orthostatic hypotension I95.1
[2022-07-03] MEDS: ASPIRIN 81 MG ECTAB PO SCH (08:34)
[2022-07-03] MEDS: CLOPIDOGREL BISULFATE 75 MG TAB PO SCH (08:34)
[2022-07-03] MEDS: FINASTERIDE 5 MG TAB PO SCH (08:34)
[2022-07-03] MEDS: ENOXAPARIN INJ 40 MG/0.4 ML SYR SQ SCH (08:34)
[2022-07-03] MEDS: NYSTATIN CR 15 GM TUBE EXT SCH ×2 (08:34→20:59)
[2022-07-03 08:40] LABS: Hematocrit (blood only) 39.5 % (40.1-51.0); Hemoglobin 13.5 g/dl (14.0-18.0); Mean Corpuscular Hemoglobin 29.8 pg (25.0-34.0); Mean Corpuscular Hgb Conc 34.2 g/dL (32.0-36.0); Mean Corpuscular Volume 87.2 fL (80.0-100.0); Mean Platelet Volume 9.8 fL (9.4-12.4); Platelet Count 236 K/uL (130-400); RDW Standard Deviation 48.2 fL (36.4-46.3); Red Blood Count 4.53 M/uL (4.63-6.08)
[2022-07-03 09:04] LABS: Calcium 7.9 mg/dl (8.5-10.1); Creatinine Clr Calc Pharmacy 35.9 ml/min; Est GFR (African American) 53.6 ml/min; Est GFR (Non-African American) 46.2 ml/min; Potassium 4.3 mmol/L (3.5-5.1)
[2022-07-03] MEDS ORDERED: SODIUM CHLORIDE 0.9% 1000ML 500 ML IV ONE (10:26)
[2022-07-03] MEDS: TAMSULOSIN HCL 0.4 MG CAP PO SCH (20:59)
[2022-07-03] MEDS: SERTRALINE HCL 100 MG TABLET PO SCH (21:00)
[2022-07-04] MEDS: CLOPIDOGREL BISULFATE 75 MG TAB PO SCH (08:21)
[2022-07-04] MEDS: ENOXAPARIN INJ 40 MG/0.4 ML SYR SQ SCH (08:21)
[2022-07-04] MEDS: FINASTERIDE 5 MG TAB PO SCH (08:21)
[2022-07-04] MEDS: ASPIRIN 81 MG ECTAB PO SCH (08:21)
[2022-07-04] MEDS: NYSTATIN CR 15 GM TUBE EXT SCH (08:22)
--- NOTE | 2022-07-04 10:18 | Discharge Summary ---
Discharge Summary Date of Service July 04, 2022 Admission HPI Per Admitting Provider 87 yo M Hx AV conduction disease s/p pacemaker 1 week ago, CKD with baseline creatinine 1.6, peripheral vascular disease with Hx osteomyelitis and partial left hallux removal, HTN, HLD presented to the ER for continued falls and continued worsening cognitive decline. History obtained from patient and patient's two daughters Isaac and Bettye. They report that Samuel lives with his , who has dementia, with Bettye living close by and checking in once daily to make sure they take their medications and have enough groceries. Over the last 3 months or so Samuel has been becoming more forgetful, requiring more help for ADLs as compared to prior. He in the last month has developed a tremor in both of his hands as well, as well as a resting tremor at times in the face. Lastly, over the last 1-2 months he has had more falls. For some time, his daughters thought the falls were due to his severe conduction disease (for which he had pacemaker placed 06/28/22). However, through the weekend, Samuel has continued to have falls without memory of those falls at times, and they have found themselves repeating conversations with him that he has forgotten. They do not think he hit his head, as he does not have any bruising, but they are not sure as they are not there all of the time. He did report "bumping his nose" during a fall two days ago. They are concerned that he may not be safe at home at this time due to debility and falls. He denies chest pain, SOB, nausea, vomiting, dysuria, diarrhea, headache. Daughters do not endorse him having complaints since his procedure. In the ER he had CXR without evidence of pneumonia, CBC and CMP normal save for creatinine 1.6 (chronic), UA without evidence of infection. COVID-19 negative. Admission Exam Per Admitting Provider Constitutional: well developed and well nourished; no acute distress Eyes: PERRL, conjunctivae normal, anicteric sclerae ENMT: external ear and nose normal, oropharynx normal Neck: trachea midline, no thyromegaly Respiratory: normal respiratory effort, lungs clear to auscultation Cardiovascular: RRR, no murmur, no edema Gastrointestinal (Abdomen): normal bowel sounds, soft, nontender, no hepatosplenomegaly Musculoskeletal: no cyanosis or clubbing, extremities motor strength 5/5 Skin: no rashes, warm and dry Neurologic: AAOx3, normal speech. Hard of hearing. Intermittent confusion with redirectability. PERRLA, EOMI, no nystagmus. Normal visual acuity bilaterally. Bilateral UE, LE, and face without sensory or motor deficits. No pronator drift. Resting pill-roll tremor in bilateral lands R>L. Psychiatric: A+Ox3, euthymic affect Principal Dx & Hospital Course #1 = Principal Diagnosis (1) Falls: Falls multifactorial with orthostatic hypotension (standing BP 60s systolic, though asymptomatic, with PT on 07/01), shuffling gait, recent foot surgery CT Head ordered by this provider to rule out head trauma pathologies -> no evidence of hemorrhage or CVA CBC and BMP reviewed; CBC with Hgb improved today to 13.5 (came in higher but was dehydrated and has received IV fluids since) and BMP with chronic renal dysfunction at baseline (see CKD below) TSH normal. Lyme IgG/IgM negative. B12/folate levels normal. Neuro consulted and appreciate recommendations: most suspicious of underlying dementia, gait choppy but not necessarily Parkinsonian, did have note of mild essential tremor. Follow up Neuro clinic 2-3 weeks. Rhythm has been paced and no issues on telemetry so do not feel these falls are due to AV conduction issues in the past. Discharge to rehab facility for PT/OT/[employer]. (2) Parkinsonian features: Noted on admission to have complaints of choppy gait and falls, progressive cognitive decline, and hand/head tremor/jerks CT Head to rule out head trauma pathologies ordered -> no evidence of hemorrhage or CVA, no other pathologies Unable to perform MRI brain due to recent pacemaker placement Metabolic evaluation as above Neuro consult as above (3) Atrioventricular conduction disorder: History of, with pacemaker placed by Dr. Lewis on 06/28 (4) Head trauma: Report by daughter that patient hit his nose during one of his falls a few days before admission No evidence of bruising to his head or headache, however CT Head performed to rule out hemorrhage or CVA given patient often does not remember how he fell -> negative. (5) PAD (peripheral artery disease): History of Continue home aspirin and Plavix Held antihypertensives given hypotension not only prior to arrival to ER but orthostatic hypotension with PT 07/01 and 07/03, can be resumed as tolerated. (6) Orthostatic hypotension: Episodes of hypotension working with PT, improved and no symptoms of hypotension on discharge, BP normal. (7) CKD (chronic kidney disease) stage 3, GFR 30-59 ml/min: History of CKD with baseline creatinine 1.6 Stable and chronic problem, creatinine 1.35 07/03 Plan Lovenox for DVT ppx FULL CODE heart healthy diet Discharge Exam Constitutional well developed and well nourished; no acute distress Respiratory normal respiratory effort, lungs clear to auscultation Cardiovascular RRR, no murmur, no edema Gastrointestinal (Abdomen) normal bowel sounds, soft, nontender, no hepatosplenomegaly Skin no rashes, warm and dry Psychiatric A+Ox3, euthymic affect Updated Medication List Medication Instructions Recorded Confirmed Type aspirin 81 mg tablet 81 mg PO DAILY 12/04/18 06/28/22 History triamcinolone acetonide 0.1 % 1 appln topical BID PRN itching 12/04/18 06/28/22 Rx topical cream #80 grams tamsulosin 0.4 mg capsule 0.8 mg PO DAILY #180 caps 06/14/21 06/28/22 Rx mupirocin 2 % topical ointment 1 applic topical BID #15 grams 12/14/21 06/28/22 Rx acetaminophen 500 mg tablet 1,000 mg PO TID PRN Pain 01/31/22 06/28/22 History (Tylenol Extra Strength) rosuvastatin 20 mg tablet (Crestor) 20 mg PO DAILY #90 tabs 01/31/22 06/28/22 Rx clopidogrel 75 mg tablet (Plavix) 75 mg PO DAILY #90 tabs 04/25/22 06/28/22 Rx cyanocobalamin (vitamin B-12) 1,000 mcg PO DAILY #30 caps 04/25/22 06/28/22 Rx 1,000 mcg capsule sertraline 100 mg tablet 100 mg PO .QHS #90 tabs 05/13/22 06/28/22 Rx potassium chloride 10 mEq 10 meq PO BID #180 tabs 05/31/22 06/28/22 Rx tablet,extended release finasteride 5 mg tablet 5 mg PO DAILY #90 tabs 06/18/22 06/28/22 Rx Hospital Stay Data Consultations 06/30/22 07:39 ED Decision to Admit Stat 07/03/22 07:00 Consult Neurology Routine Diagnostic Imagining Performed 06/30/22 08:59 CT head/brain wo con Stat Discharge Instructions Given to Patient (Per Discharging Provider) Falls: Falls multifactorial given orthostatic hypotension (standing BP 60s systolic, though asymptomatic, with PT on 07/01), shuffling gait, recent foot surgery CT Head ordered by this provider to rule out head trauma pathologies -> no evidence of hemorrhage or CVA CBC and BMP reviewed; CBC with Hgb improved today to 13.5 (came in higher but was dehydrated and has received IV fluids since) and BMP with chronic renal dysfunction at baseline (see CKD below) TSH normal. Lyme IgG/IgM negative. B12/folate levels normal. Personally discussed case with Neurology today after consultation completed: most suspicious of underlying dementia, gait choppy but not necessarily Parkinsonian, did have note of mild essential tremor. Follow up Neuro clinic 2-3 weeks. Rhythm has been paced and no issues on telemetry so do not feel these falls are due to AV conduction issues in the past. Appreciate CM assistance for placement following PT and OT recommendation of rehab on discharge. Family amenable to rehab. Tremor, gait disturbance: Noted on admission to have complaints of choppy gait and falls, progressive cognitive decline, and hand/head tremor/jerks CT Head to rule out head trauma pathologies ordered -> no evidence of hemorrhage or CVA, no other pathologies Unable to perform MRI brain due to recent pacemaker placement Metabolic evaluation as above Neuro consult as above given subacute/acute progression of tremor, gait disturbance, cognitive decline. Atrioventricular conduction disorder: History of, with pacemaker placed by Dr. Lewis on 06/28 Head trauma: Report by daughter that patient hit his nose during one of his falls a few days before admission No evidence of bruising to his head or headache, however CT Head performed to rule out hemorrhage or CVA given patient often does not remember how he fell -> negative. CKD (chronic kidney disease): History of CKD with baseline creatinine 1.6 Stable and chronic problem, creatinine 1.35 now Daily BMP Did give some gentle fluids 1/3 for appearance of volume contraction on exam, and encouraged family and nursing to assist patient with having sips of water PAD (peripheral artery disease): History of Continue home aspirin and Plavix Holding antihypertensives given hypotension not only prior to arrival to ER but orthostatic hypotension with PT 07/01 and 1/4. Orthostatic hypotension: Episodes of hypotension working with PT, standing BP better though today, continue to encourage PO fluids and can have IV bolus as needed if not having enough PO intake. 500cc bolus and continue to urge PO fluids. Held HCTZ on discharge, can consider resuming based on BP at facility. Total Time Total Time Spent Total Time Spent (In Minutes): 35 min Coding Level of Care Code HOSP INP/OBS DISCH >30 MIN Diagnoses Falls W19.XXXA Parkinsonian features R25.9 Atrioventricular conduction disorder I44.30 Head trauma S09.90XA PAD (peripheral artery disease) I73.9 Orthostatic hypotension I95.1 CKD (chronic kidney disease) stage 3, GFR 30-59 ml/min N18.30
== END 2022-07-04 14:35 ==
LOC: ED 04:58 → EDINP 08:59 → INTOOBSV 08:59 → 2S 13:02 → 2N 07-02 08:01